=== PATIENT | female | born 1950 ===

== ENCOUNTER 2018-09-11 09:51 | Outpatient (REF) | payer MEDICARE, OTHER, SELFPAY ==
[2018-09-11 21:18] LABS: Absolute Basophil Count 0.02 k/cumm (0.0-0.2); Absolute Eosinophil Count 0.06 k/cumm (0.0-0.7); Absolute Lymphocyte Count 1.84 k/cumm (1.2-3.4); Absolute Monocyte Count 0.38 k/cumm (0.11-0.7); Absolute Neutrophil Count 2.62 k/cumm (1.2-6.7); Basophils % 0.4; Eosinophils % 1.2; HCT 41.2 % (36.0-46.0); HGB 13.9 g/dL (12.0-15.5); Lymphocytes % 37.4; Mean Corp. HGB Concentration 33.7 g/dL (32.0-36.0); Mean Corpuscular Hemoglobin 30.9 pg (27.0-33.0); Mean Corpuscular Volume 91.6 fL (80-95); Mean Platelet Volume 10.7 fL (8.0-11.0); Monocytes % 7.7; Neutrophils % 53.3; Platelet Count 261 x1000/uL (130-400); RBC Distribution Width 13.5 % (11.7-14.6); White Blood Cell Count 4.92 k/cumm (4.4-10.8)
[2018-09-11 22:00] LABS: ALT 25 U/L (12-78); AST 27 U/L (15-37); Albumin 4.2 g/dL (3.4-5.0); Alkaline Phosphatase 93 U/L (46-116); Anion Gap 8.6 mmol/L (3-11); BUN 13 mg/dL (7-18); Bilirubin, Total 0.4 mg/dL (0.2-1.0); CO2 29.4 mmol/L (21.0-32.0); CREATININE 0.94 mg/dL (0.55-1.02); Calcium 9.5 mg/dL (8.5-10.1); Chloride 100 mmol/L (98-107); Estimated GFR 59.22 (mL/min/1.73m2); Glucose 104 mg/dL (70-100); Sodium 138 mmol/L (136-145); Total Protein 7.7 g/dL (6.4-8.2)
== END 2018-09-11 10:11 ==
LOC: NCHCN 09:51
PROVIDERS: PCP Family Medicine; Visit Provider Family Medicine
DX: R10.11 Right upper quadrant pain (principal)
CPT/HCPCS: 80053; 85025

== ENCOUNTER 2019-05-13 09:52 | Outpatient (REF) | payer MEDICARE, OTHER, SELFPAY | END 2019-05-13 10:12 | LOC: NCHCO 09:52 | PROVIDERS: PCP Family Medicine; Visit Provider Family Medicine | DX: N76.0 Acute vaginitis (principal) | CPT/HCPCS: 87480; 87510; 87660 ==

== ENCOUNTER 2021-11-01 19:13 | Outpatient (REF) | payer MEDICARE, OTHER, SELFPAY ==
[2021-11-01 17:11] LABS: Calculated LDL 183 mg/dL (<100); Cholesterol 259 mg/dL (<200); Glucose 103 mg/dL (74-106); HDL Cholesterol 58 mg/dL (40-60); Triglyceride 91 mg/dL (<150)
== END 2021-11-01 19:14 | disposition home or self-care (01) ==
LOC: NCHCN 19:13
PROVIDERS: PCP Family Medicine; Visit Provider Family Medicine
DX: E78.5 Hyperlipidemia, unspecified (principal)
CPT/HCPCS: 80061; 82947

== ENCOUNTER 2024-07-09 17:11 | Outpatient (REF) | payer OTHER, SELFPAY ==
[2024-07-09 21:00] LABS: HCT 40.4 % (36.0-46.0); HGB 13.6 g/dL (11.2-15.7); MCH 31.4 pg (27.0-33.0); MCHC 33.7 % (32.0-36.0); MCV 93 fL (80-95); MPV 10.1 fL (8.0-11.0); Platelet Count 275 10^3/uL (130-400); RBC 4.33 10^6/uL (3.93-5.22); RDW-SD 44.5 fL; WBC 6.56 10^3/uL (4.4-10.8)
[2024-07-09 21:37] LABS: ALT 25 U/L (14-59); AST 30 U/L (15-37); Albumin 4.4 g/dL (3.4-5.0); Alkaline Phosphatase 93 U/L (46-116); Anion Gap 9.6 mmol/L (3-11); BUN 12 mg/dL (7-18); Bilirubin, Total 0.33 mg/dL (0.2-1.0); CO2 29.4 mmol/L (21.0-32.0); CREATININE 0.9 mg/dL (0.55-1.02); Calcium 9.6 mg/dL (8.5-10.1); Calculated LDL 189 mg/dL (<100); Chloride 100 mmol/L (98-107); Cholesterol 290 mg/dL (<200); Estimated GFR 67.08 (mL/min/1.73m2); Glucose 101 mg/dL (74-106); HDL Cholesterol 66 mg/dL (40-60); Potassium 4.1 mmol/L (3.5-5.1); Sodium 139 mmol/L (136-145); TSH (W/Ref FT4) 1.91 uIU/mL (0.36-3.74); Total Protein 7.9 g/dL (6.4-8.2); Triglyceride 178 mg/dL (<150); Vitamin B12 342 pg/mL (193-986)
== END 2024-07-09 17:12 | disposition home or self-care (01) ==
LOC: NCHCN 17:11
PROVIDERS: PCP Family Medicine; Visit Provider Family Medicine
DX: E78.5 Hyperlipidemia, unspecified (principal); G60.9 Hereditary and idiopathic neuropathy, unspecified
CPT/HCPCS: 80053; 80061; 85027; 82607; 84443

== ENCOUNTER 2024-08-02 13:53 | Outpatient (REF) | payer OTHER, SELFPAY ==
[2024-08-02 14:52] LABS: Anion Gap 8.9 mmol/L (3-11); BUN 19 mg/dL (7-18); CO2 27.1 mmol/L (21.0-32.0); CREATININE 0.9 mg/dL (0.55-1.02); Calcium 9.7 mg/dL (8.5-10.1); Chloride 103 mmol/L (98-107); Estimated GFR 67.08 (mL/min/1.73m2); Glucose 113 mg/dL (74-106); Potassium 4.5 mmol/L (3.5-5.1); Sodium 139 mmol/L (136-145)
== END 2024-08-02 13:54 | disposition home or self-care (01) ==
LOC: NCHCN 13:53
PROVIDERS: PCP Family Medicine; Visit Provider Family Medicine
DX: I10 Essential (primary) hypertension (principal)
CPT/HCPCS: 80048

== ENCOUNTER 2024-09-20 17:36 | Outpatient (REF) | payer MEDICARE, SELFPAY ==
[2024-09-20 15:05] LABS: ALT 29 U/L (14-59); AST 27 U/L (15-37); Albumin 4.3 g/dL (3.4-5.0); Alkaline Phosphatase 88 U/L (46-116); Anion Gap 7.3 mmol/L (3-11); BUN 13 mg/dL (7-18); Bilirubin, Total 0.46 mg/dL (0.2-1.0); CO2 28.7 mmol/L (21.0-32.0); Calcium 9.3 mg/dL (8.5-10.1); Calculated LDL 103 mg/dL (<100); Chloride 103 mmol/L (98-107); Cholesterol 189 mg/dL (<200); Estimated GFR 59.12 (mL/min/1.73m2); Glucose 98 mg/dL (74-106); HDL Cholesterol 71 mg/dL (40-60); Potassium 4.8 mmol/L (3.5-5.1); Sodium 139 mmol/L (136-145); Total Protein 7.6 g/dL (6.4-8.2); Triglyceride 78 mg/dL (<150)
== END 2024-09-20 17:37 | disposition home or self-care (01) ==
LOC: NCHCN 17:36
PROVIDERS: PCP Family Medicine; Visit Provider Family Medicine
DX: E78.5 Hyperlipidemia, unspecified (principal)
CPT/HCPCS: 80053; 80061